=== PATIENT | male | born 1970 | race American Indian/Alaskan Native ===

== ENCOUNTER 2020-09-26 16:06 | Emergency (ER) | payer SELFPAY ==
[2020-09-26 17:10] LABS: Basophils % (Auto) 0.3 % (0.0-1.8); Eosinophils % (Auto) 0.3 % (0.0-4.3); Hematocrit 36.4 % (35.5-45.6); Hemoglobin 12.3 gm/dl (11.8-15.2); Lymphocytes # (Auto) 1.8 K/mm3 (1.2-5.4); Lymphocytes % (Auto) 13.1 % (13.4-35.0); Mean Corpuscular HGB Conc 34 % (32-34); Mean Corpuscular Volume 96 fl (84-94); Monocytes # (Auto) 1.8 K/mm3 (0.0-0.8); Monocytes % (Auto) 13.6 % (0.0-7.3); Platelet Count 184 K/mm3 (140-440); Red Blood Count 3.78 M/mm3 (3.65-5.03); Red Cell Distribution Width 13.5 % (13.2-15.2)
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
[2020-09-26] MEDS ORDERED: ACETAMINOPHEN 500 MG TAB PO ONE (17:16)
[2020-09-26] MEDS ORDERED: SODIUM CHLORIDE 0.9% 1000 ML 2,000 ML IV ONE (17:23)
[2020-09-26 17:32] LABS: Alanine Aminotransferase 10 units/L (7-56); BUN/Creatinine Ratio 9; Blood Urea Nitrogen 9 mg/dL (9-20); Calcium 9.1 mg/dL (8.4-10.2); Hemolysis Index 5
--- NOTE | 2020-09-26 18:04 | XRay Report ---
LEFT LOWER LEG 2 VIEWS INDICATION / CLINICAL INFORMATION: Injury with left lower leg pain and swelling. COMPARISON: None available. FINDINGS: BONES / JOINT(S): There is a possible nondisplaced fracture of the distal fibular metaphysis. There a re moderate degenerative changes involving the knee. There is also chondrocalcinosis involving the kn ee. There is a small plantar calcaneal spur. SOFT TISSUES: There is moderate soft tissue swelling overlying the lateral malleolus. ADDITIONAL FINDINGS: None. Signer Name: Flavio Perez MD Signed: 09/26/2020 6:00 PM Workstation Name: [id number]
--- NOTE | 2020-09-26 18:05 | XRay Report ---
CHEST 1 VIEW 09/26/2020 4:56 PM INDICATION / CLINICAL INFORMATION: Fever. COMPARISON: 06/11/16. FINDINGS: SUPPORT DEVICES: None. HEART / MEDIASTINUM: The heart size and pulmonary vasculature are normal. LUNGS / PLEURA: No significant pulmonary or pleural abnormality. No pneumothorax. ADDITIONAL FINDINGS: No significant additional findings. IMPRESSION: No acute findings. Signer Name: Flavio Perez MD Signed: 09/26/2020 6:01 PM Workstation Name: [id number]
--- NOTE | 2020-09-26 18:12 | XRay Report ---
LEFT WRIST 3 VIEWS INDICATION / CLINICAL INFORMATION: Swelling pain redness COMPARISON: None available. FINDINGS: BONES / JOINT(S): No acute fracture or subluxation. No significant arthritis. SOFT TISSUES: No significant abnormality. ADDITIONAL FINDINGS: None. Signer Name: Hector Lund MD Signed: 09/26/2020 6:08 PM Workstation Name: [id number]
--- NOTE | 2020-09-26 18:13 | XRay Report ---
LEFT WRIST 4 VIEWS INDICATION / CLINICAL INFORMATION: Swelling pain redness COMPARISON: None available. FINDINGS: BONES / JOINT(S): No acute fracture or subluxation. No significant arthritis. SOFT TISSUES: No significant abnormality. ADDITIONAL FINDINGS: None. Signer Name: Hector Lund MD Signed: 09/26/2020 6:09 PM Workstation Name: [id number]
--- NOTE | 2020-09-26 18:14 | XRay Report ---
LEFT ANKLE 3 VIEWS INDICATION / CLINICAL INFORMATION: pain. COMPARISON: None available. FINDINGS: BONES / JOINT(S): Nondisplaced fracture involving the lateral malleolus. No significant arthritis. SOFT TISSUES: Soft tissue swelling laterally greater than medially. Widening at the ankle mortise med ially compatible with ligamentous disruption. ADDITIONAL FINDINGS: None. Signer Name: Hector Lund MD Signed: 09/26/2020 6:10 PM Workstation Name: [id number]
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
[2020-09-26] MEDS ORDERED: CLINDAMYCIN 300 MG/50 mL 300 MG/50 ML BAG IV ONE (19:53)
--- NOTE | 2020-09-26 20:49 | Vascular Lab Report ---
DUPLEX DOPPLER LOWER EXTREMITY VEINS, LEFT INDICATION / CLINICAL INFORMATION: Leg pain and redness and swelling. TECHNIQUE: Duplex doppler imaging was performed through the veins of the left lower extremity using v enous compression and other maneuvers. COMPARISON: None available. FINDINGS: LEFT COMMON FEMORAL VEIN: Negative. LEFT FEMORAL VEIN: Negative. LEFT POPLITEAL VEIN: Negative. LEFT CALF VEINS: Negative. ADDITIONAL FINDINGS: None. IMPRESSION: 1. No sonographic evidence for DVT in the left lower extremity. Signer Name: Sb Sloan MD Signed: 09/26/2020 8:44 PM Workstation Name: [id number]
[2020-09-26 23:25] VITALS: BP 132/85
== END 2020-09-26 23:26 | disposition other institution (70) ==
LOC: ED 16:06
DX: S06.0X9A Concussion with loss of consciousness of unspecified duration, initial encounter (principal); S82.892A Other fracture of left lower leg, initial encounter for closed fracture; S02.85XA Fracture of orbit, unspecified, initial encounter for closed fracture; S60.222A Contusion of left hand, initial encounter; S60.212A Contusion of left wrist, initial encounter; S09.93XA Unspecified injury of face, initial encounter; M25.572 Pain in left ankle and joints of left foot; M25.532 Pain in left wrist; R50.9 Fever, unspecified; M79.89 Other specified soft tissue disorders; L03.116 Cellulitis of left lower limb; M79.642 Pain in left hand; R40.20 Unspecified coma; Z79.899 Other long term (current) drug therapy; Z98.890 Other specified postprocedural states; Y04.8XXA Assault by other bodily force, initial encounter; Y93.89 Activity, other specified; Y92.89 Other specified places as the place of occurrence of the external cause; Y99.8 Other external cause status
CPT/HCPCS: 36415; 70450; 70486; 71045; 80053; 82140; 85025; 87040; 96361; 96365; 99292